=== PATIENT | female | born 1950 | race Two or more races ===

== ENCOUNTER 2017-03-31 06:37 | Inpatient (IN) | payer OTHER ==
[~2017-03-31] VITALS: Ht 160 cm; Wt 108.1 kg
[2017-03-31 07:37] LABS: BASOPHIL % 0.3 % (0-2); PLATELET COUNT 139 x10^3mcL (130-400)
[2017-03-31 07:41] LABS: RED CELL DISTRIBUTION WIDTH 15.8 % (11.5-14.5)
[2017-03-31 07:53] LABS: ALBUMIN 3.7 g/dL (3.4-5.0); BILIRUBIN TOTAL 0.4 mg/dL (0.20-1.00); CALCIUM 9.4 mg/dL (8.5-10.1); CARBON DIOXIDE 32.3 mmol/L (21-32); PHOSPHOROUS 3.9 mg/dL (2.5-4.9); POTASSIUM SERUM 4.4 mmol/L (3.5-5.1); TOTAL PROTEIN, SERUM 7.1 g/dL (6.4-8.2)
[2017-03-31 07:55] LABS: CREATININE SERUM 6.4 mg/dL (0.6-1.0)
[2017-03-31] MEDS ORDERED: HYDRALAZINE HCL25 MG PO (08:53)
[2017-03-31] MEDS ORDERED: RENVELA800 M1 PO (08:53)
[2017-03-31] MEDS ORDERED: NEPHRO-VITE VITA1 EA PO (08:54)
[2017-03-31] MEDS ORDERED: LOSARTAN POTASS50 M1 PO (08:54)
[2017-03-31 11:24] VITALS: BP 178/96
[2017-03-31 11:25] LABS: T3 TOTAL 0.97 ng/mL
[2017-03-31 11:34] LABS: FREE T4 1.21 ng/dL (0.76-1.46); FREE THYROXINE INDEX 3.1 ug/dL (1.4-4.5); T4(THYROXINE) 9.2 ug/dL (4.7-13.3)
[2017-03-31 15:40] VITALS: BP 155/62
[2017-03-31 19:30] VITALS: BP 154/52
[2017-04-01] VITALS: BP 152/74
[2017-04-01 04:05] VITALS: BP 130/65
[2017-04-01 05:40] LABS: BASOPHIL % 0.6 % (0-2); PLATELET COUNT 133 x10^3mcL (130-400); RED CELL DISTRIBUTION WIDTH 15.1 % (11.5-14.5)
[2017-04-01 05:41] LABS: CALCIUM 9.2 mg/dL (8.5-10.1); CARBON DIOXIDE 31.5 mmol/L (21-32); POTASSIUM SERUM 5.2 mmol/L (3.5-5.1)
[2017-04-01 05:43] LABS: CREATININE SERUM 8.2 mg/dL (0.6-1.0)
[2017-04-01 08:11] VITALS: BP 141/64
[2017-04-01 12:00] VITALS: BP 185/65
[2017-04-01 18:04] VITALS: BP 130/55
[2017-04-01 22:04] VITALS: BP 108/37
[2017-04-02 06:13] VITALS: BP 118/44
[2017-04-02 06:21] LABS: MAGNESIUM 1.9 mg/dL (1.8-2.4); PHOSPHOROUS 4.6 mg/dL (2.5-4.9)
[2017-04-02 06:30] LABS: CALCIUM 8.9 mg/dL (8.5-10.1); CARBON DIOXIDE 33.6 mmol/L (21-32); POTASSIUM SERUM 3.9 mmol/L (3.5-5.1)
[2017-04-02 06:35] LABS: CREATININE SERUM 5.7 mg/dL (0.6-1.0)
[2017-04-02 10:16] LABS: IRON 61 ug/dL (50-170)
[2017-04-02 10:24] LABS: RED BLOOD CELLS 3.17 M/mm3 (4.10-5.10); TOTAL IRON BINDING CAPACITY 203 ug/dL (250-450)
[2017-04-02 10:53] VITALS: BP 129/45
[2017-04-02 14:11] VITALS: BP 146/45
[2017-04-02 16:50] VITALS: Ht 160 cm; Wt 108.1 kg
[2017-04-02 20:38] VITALS: BP 98/33
[2017-04-03 05:17] VITALS: BP 148/43
[2017-04-03 06:40] LABS: CALCIUM 8.9 mg/dL (8.5-10.1); CARBON DIOXIDE 33.9 mmol/L (21-32)
[2017-04-03 06:42] LABS: CREATININE SERUM 6.1 mg/dL (0.6-1.0)
[2017-04-03 08:57] VITALS: BP 108/52
[2017-04-03 11:51] VITALS: BP 108/52
== END 2017-04-03 12:17 | disposition home or self-care (01) | DRG 640 ==
LOC: ED 06:37 → IC 09:53 → MU 04-01 11:57 → DU 04-01 12:12
PROVIDERS: Emergency Medicine; Internal Medicine; ADMIT Family Medicine
DX: E87.8 Other disorders of electrolyte and fluid balance, not elsewhere classified (principal); N18.6 End stage renal disease; G93.41 Metabolic encephalopathy; N17.0 Acute kidney failure with tubular necrosis; I50.43 Acute on chronic combined systolic (congestive) and diastolic (congestive) heart failure; Z68.42 Body mass index [BMI] 45.0-49.9, adult; I13.2 Hypertensive heart and chronic kidney disease with heart failure and with stage 5 chronic kidney disease, or end stage renal disease; I16.0 Hypertensive urgency; E11.319 Type 2 diabetes mellitus with unspecified diabetic retinopathy without macular edema; E11.51 Type 2 diabetes mellitus with diabetic peripheral angiopathy without gangrene; D63.1 Anemia in chronic kidney disease; R00.1 Bradycardia, unspecified; E66.01 Morbid (severe) obesity due to excess calories; Z99.2 Dependence on renal dialysis
CPT/HCPCS: 82962; 83880; 84439; 97110-GP; 97116-GP; 97530-GP; A4719; J3490; J7030; J7042; Q0092

== ENCOUNTER 2018-03-20 20:28 | Emergency (ER) | payer OTHER ==
[~2018-03-20] VITALS: Ht 165.1 cm; Wt 111.1 kg
[~2018-03-20 20:28] MED LIST: HYDRALAZINE HCL25 MG PO; LAC PO; LEVAQUIN750 MG PO; LOSARTAN POTASS50 M1 PO; NEPHRO-VITE VITA1 EA PO; RENVELA800 M1 PO; TRAZODONE100 MG PO
[2018-03-20 21:29] LABS: BASOPHIL % 0.4 % (0-2)
[2018-03-20 21:30] LABS: PLATELET COUNT 102 x10^3mcL (130-400); RED CELL DISTRIBUTION WIDTH 15.2 % (11.5-14.5)
[2018-03-20 21:50] LABS: ALBUMIN 3.6 g/dL (3.4-5.0); BILIRUBIN TOTAL 0.48 mg/dL (0.20-1.00); CALCIUM 10.3 mg/dL (8.5-10.1); CARBON DIOXIDE 31.1 mmol/L (21-32); POTASSIUM SERUM 5.4 mmol/L (3.5-5.1); TOTAL PROTEIN, SERUM 6.5 g/dL (6.4-8.2)
[2018-03-20 21:54] LABS: CREATININE SERUM 8.3 mg/dL (0.6-1.0)
[2018-03-20 22:13] VITALS: BP 208/83
== END 2018-03-20 22:42 | disposition home or self-care (01) ==
LOC: ED 20:28
PROVIDERS: Emergency Medicine
DX: E11.22 Type 2 diabetes mellitus with diabetic chronic kidney disease (principal); I12.0 Hypertensive chronic kidney disease with stage 5 chronic kidney disease or end stage renal disease; N18.6 End stage renal disease; E11.43 Type 2 diabetes mellitus with diabetic autonomic (poly)neuropathy; K31.84 Gastroparesis; E78.5 Hyperlipidemia, unspecified
CPT/HCPCS: 83880; J2765; Q0092

== ENCOUNTER 2018-09-08 11:33 | Emergency (ER) | payer OTHER ==
[~2018-09-08] VITALS: Ht 157.5 cm; Wt 89.8 kg
[2018-09-08 11:43] VITALS: Ht 157.5 cm; Wt 89.8 kg
[2018-09-08 12:25] LABS: BASOPHIL % 1.1 % (0-2)
[2018-09-08 12:28] LABS: PLATELET COUNT 103 x10^3mcL (130-400); RED CELL DISTRIBUTION WIDTH 15.5 % (11.5-14.5)
[2018-09-08 12:43] LABS: ALBUMIN 3.4 g/dL (3.4-5.0); BILIRUBIN TOTAL 0.3 mg/dL (0.20-1.00); CALCIUM 9.3 mg/dL (8.5-10.1); CARBON DIOXIDE 30.1 mmol/L (21-32); POTASSIUM SERUM 4.5 mmol/L (3.5-5.1); TOTAL PROTEIN, SERUM 6.6 g/dL (6.4-8.2)
[2018-09-08 12:44] LABS: CHOLESTEROL/HDL RATIO 2.1; CREATININE SERUM 8.3 mg/dL (0.6-1.0)
[2018-09-08 13:04] LABS: FREE T4 0.77 ng/dL (0.76-1.46)
[2018-09-08 13:20] LABS: T3 TOTAL 0.67 ng/mL
[2018-09-08 14:27] VITALS: BP 190/72
== END 2018-09-08 14:27 | disposition home or self-care (01) ==
LOC: ED 11:33
PROVIDERS: Specialist
DX: R00.1 Bradycardia, unspecified (principal); E11.22 Type 2 diabetes mellitus with diabetic chronic kidney disease; E78.00 Pure hypercholesterolemia, unspecified; H54.7 Unspecified visual loss; N18.6 End stage renal disease; Z99.2 Dependence on renal dialysis; Z86.2 Personal history of diseases of the blood and blood-forming organs and certain disorders involving the immune mechanism
CPT/HCPCS: 36415; 83880; 84439; J7030; Q0092

== ENCOUNTER 2019-08-16 14:48 | Emergency (ER) | payer OTHER ==
[~2019-08-16] VITALS: Ht 157.5 cm; Wt 93.4 kg
[2019-08-16 14:51] VITALS: Ht 157.5 cm; Wt 93.4 kg
[2019-08-16 16:00] LABS: RED CELL DISTRIBUTION WIDTH 14.4 % (11.5-14.5)
[2019-08-16 16:01] LABS: BASOPHIL % 0 % (0-2); BILIRUBIN TOTAL 0.5 mg/dL (0.20-1.00); CALCIUM 8.4 mg/dL (8.5-10.1); CARBON DIOXIDE 35.8 mmol/L (21-32); PLATELET COUNT 114 x10^3mcL (130-400); POTASSIUM SERUM 4.3 mmol/L (3.5-5.1)
[2019-08-16 16:04] LABS: ALBUMIN 2.8 g/dL (3.4-5.0); TOTAL PROTEIN, SERUM 6.1 g/dL (6.4-8.2)
[2019-08-16 16:05] LABS: CREATININE SERUM 5.6 mg/dL (0.6-1.0)
[2019-08-16 17:05] VITALS: BP 171/60
== END 2019-08-16 17:05 | disposition home or self-care (01) ==
LOC: ED 14:48
PROVIDERS: Emergency Medicine
DX: R11.10 Vomiting, unspecified (principal); E11.22 Type 2 diabetes mellitus with diabetic chronic kidney disease; N18.6 End stage renal disease
CPT/HCPCS: 36415; J2405; Q0162

== ENCOUNTER 2019-09-30 11:38 | Inpatient (IN) | payer OTHER, MEDICAID ==
[~2019-09-30] VITALS: Ht 157.5 cm; Wt 95.0 kg
[2019-09-30 11:45] VITALS: Ht 157.5 cm; Wt 95.0 kg
[2019-09-30 12:49] LABS: BASOPHIL % 0.1 % (0-2)
[2019-09-30 12:51] LABS: CALCIUM 8.9 mg/dL (8.5-10.1); CARBON DIOXIDE 33.8 mmol/L (21-32); CREATININE SERUM 3.3 mg/dL (0.6-1.0); POTASSIUM SERUM 3.6 mmol/L (3.5-5.1)
[2019-09-30 12:52] LABS: PLATELET COUNT 92 x10^3mcL (130-400); RED CELL DISTRIBUTION WIDTH 16.7 % (11.5-14.5)
[2019-09-30 12:56] LABS: BILIRUBIN TOTAL 0.6 mg/dL (0.20-1.00); TOTAL PROTEIN, SERUM 6.3 g/dL (6.4-8.2)
[2019-09-30 13:04] LABS: ALBUMIN 2.8 g/dL (3.4-5.0)
[2019-09-30 13:06] LABS: microscopic required? YES; urine erythrocyte 2+ (NEGATIVE)
[2019-09-30] MEDS ORDERED: [UNRECOGNIZED DRUG - OTHER] PO (14:42)
[2019-09-30 15:39] VITALS: BP 150/56
[2019-09-30 16:28] LABS: MAGNESIUM 1.9 mg/dL (1.8-2.4); PHOSPHOROUS 1.7 mg/dL (2.5-4.9)
[2019-09-30 16:29] LABS: CHOLESTEROL/HDL RATIO 2.2; FREE T4 1.39 ng/dL (0.76-1.46); T4(THYROXINE) 8.1 ug/dL (4.7-13.3)
[2019-09-30 16:30] LABS: T3 TOTAL 0.57 ng/mL
[2019-09-30 20:53] VITALS: BP 157/43
[2019-10-01 05:57] VITALS: BP 168/46
[2019-10-01 07:01] LABS: BASOPHIL % 0.1 % (0-2)
[2019-10-01 07:13] LABS: CALCIUM 8.8 mg/dL (8.5-10.1); CARBON DIOXIDE 30.2 mmol/L (21-32); MAGNESIUM 1.9 mg/dL (1.8-2.4); PHOSPHOROUS 2.8 mg/dL (2.5-4.9)
[2019-10-01 07:25] LABS: CREATININE SERUM 4.6 mg/dL (0.6-1.0)
[2019-10-01 07:37] LABS: PLATELET COUNT 83 x10^3mcL (130-400); RED CELL DISTRIBUTION WIDTH 17.2 % (11.5-14.5)
[2019-10-01 09:40] VITALS: BP 154/40
[2019-10-01 13:32] VITALS: BP 140/54
[2019-10-01 17:09] VITALS: BP 133/53
[2019-10-01 20:49] VITALS: BP 155/41
[2019-10-02 06:02] VITALS: BP 151/34
[2019-10-02 07:37] LABS: CALCIUM 8.8 mg/dL (8.5-10.1); CARBON DIOXIDE 30.8 mmol/L (21-32); MAGNESIUM 2.1 mg/dL (1.8-2.4); PHOSPHOROUS 3.3 mg/dL (2.5-4.9)
[2019-10-02 07:39] LABS: CREATININE SERUM 6.2 mg/dL (0.6-1.0)
[2019-10-02 07:51] LABS: BASOPHIL % 0.1 % (0-2)
[2019-10-02 08:30] LABS: PLATELET COUNT 82 x10^3mcL (130-400); RED CELL DISTRIBUTION WIDTH 17.3 % (11.5-14.5)
[2019-10-02 09:12] VITALS: BP 167/46
[2019-10-02 12:20] VITALS: BP 141/32
[2019-10-02 17:15] VITALS: BP 141/40
[2019-10-02 21:59] VITALS: BP 120/27
[2019-10-03 05:24] VITALS: BP 165/41
[2019-10-03 06:59] LABS: BASOPHIL % 0.4 % (0-2)
[2019-10-03 07:06] LABS: CALCIUM 8.5 mg/dL (8.5-10.1); CARBON DIOXIDE 30.6 mmol/L (21-32); POTASSIUM SERUM 3.8 mmol/L (3.5-5.1)
[2019-10-03 07:14] LABS: CREATININE SERUM 4.2 mg/dL (0.6-1.0)
[2019-10-03 07:39] VITALS: BP 155/38
[2019-10-03 09:12] LABS: PLATELET COUNT 90 x10^3mcL (130-400); RED CELL DISTRIBUTION WIDTH 17.6 % (11.5-14.5)
[2019-10-03 12:46] VITALS: BP 135/34
[2019-10-03 15:50] VITALS: BP 131/34
[2019-10-03 20:50] VITALS: BP 169/73
[2019-10-04 05:47] VITALS: BP 190/55
[2019-10-04 06:40] LABS: BASOPHIL % 0.3 % (0-2)
[2019-10-04 07:08] LABS: CALCIUM 9.2 mg/dL (8.5-10.1); PHOSPHOROUS 3.6 mg/dL (2.5-4.9); POTASSIUM SERUM 3.7 mmol/L (3.5-5.1)
[2019-10-04 07:19] LABS: CREATININE SERUM 5.7 mg/dL (0.6-1.0)
[2019-10-04 07:29] LABS: PLATELET COUNT 88 x10^3mcL (130-400)
[2019-10-04 09:31] VITALS: BP 175/47
[2019-10-04 12:46] VITALS: BP 120/36
[2019-10-04 16:20] VITALS: BP 117/40
[2019-10-04 20:33] VITALS: BP 133/27
[2019-10-04 21:34] VITALS: BP 133/40
[2019-10-05 04:25] VITALS: BP 137/33
[2019-10-05 05:22] VITALS: BP 154/33
[2019-10-05 06:31] LABS: BASOPHIL % 0.6 % (0-2)
[2019-10-05 06:45] LABS: PLATELET COUNT 83 x10^3mcL (130-400); RED CELL DISTRIBUTION WIDTH 17.1 % (11.5-14.5)
[2019-10-05 07:04] LABS: CALCIUM 8.9 mg/dL (8.5-10.1); CARBON DIOXIDE 32.3 mmol/L (21-32); CREATININE SERUM 4.3 mg/dL (0.6-1.0); POTASSIUM SERUM 3.7 mmol/L (3.5-5.1)
[2019-10-05 12:30] VITALS: BP 147/35
[2019-10-05 15:10] VITALS: BP 137/34
[2019-10-05 20:04] VITALS: BP 149/34
[2019-10-06 04:30] VITALS: BP 120/37
[2019-10-06 07:37] LABS: BASOPHIL % 0.5 % (0-2)
[2019-10-06 08:02] LABS: POTASSIUM SERUM 3.7 mmol/L (3.5-5.1)
[2019-10-06 08:03] LABS: CALCIUM 9.1 mg/dL (8.5-10.1); CREATININE SERUM 5.9 mg/dL (0.6-1.0); MAGNESIUM 1.9 mg/dL (1.8-2.4); PHOSPHOROUS 3.8 mg/dL (2.5-4.9)
[2019-10-06 08:06] LABS: PLATELET COUNT 96 x10^3mcL (130-400); RED CELL DISTRIBUTION WIDTH 17.5 % (11.5-14.5)
[2019-10-06 09:00] VITALS: BP 144/35
[2019-10-06 12:30] VITALS: BP 160/37
[2019-10-06 17:41] VITALS: BP 156/38
[2019-10-06 20:30] VITALS: BP 160/39
[2019-10-07 04:16] VITALS: BP 146/38
[2019-10-07 06:29] LABS: BASOPHIL % 0.6 % (0-2)
[2019-10-07 06:37] LABS: PLATELET COUNT 99 x10^3mcL (130-400); RED CELL DISTRIBUTION WIDTH 17.6 % (11.5-14.5)
[2019-10-07 07:07] LABS: CARBON DIOXIDE 30.9 mmol/L (21-32); POTASSIUM SERUM 4.1 mmol/L (3.5-5.1)
[2019-10-07 07:08] LABS: CALCIUM 8.9 mg/dL (8.5-10.1)
[2019-10-07 09:10] VITALS: BP 143/40
[2019-10-07 12:36] VITALS: BP 134/34
[2019-10-07 17:52] VITALS: BP 171/45
[2019-10-07 18:44] VITALS: BP 150/44
[2019-10-07 20:21] VITALS: BP 164/36
[2019-10-08 04:46] VITALS: BP 157/40
[2019-10-08 07:22] LABS: BASOPHIL % 0.4 % (0-2)
[2019-10-08 08:05] LABS: PLATELET COUNT 103 x10^3mcL (130-400); RED CELL DISTRIBUTION WIDTH 17.5 % (11.5-14.5)
[2019-10-08 08:18] VITALS: BP 141/34
[2019-10-08 08:26] LABS: CARBON DIOXIDE 27.9 mmol/L (21-32); POTASSIUM SERUM 4.3 mmol/L (3.5-5.1)
[2019-10-08 08:27] LABS: CALCIUM 8.9 mg/dL (8.5-10.1); CREATININE SERUM 8.4 mg/dL (0.6-1.0)
[2019-10-08 15:35] VITALS: BP 177/50
[2019-10-08 17:10] VITALS: BP 151/42
[2019-10-08 21:10] VITALS: BP 116/38
[2019-10-09 04:48] VITALS: BP 152/55
[2019-10-09 07:37] LABS: RED CELL DISTRIBUTION WIDTH 17.4 % (11.5-14.5)
[2019-10-09 07:38] LABS: PLATELET COUNT 105 x10^3mcL (130-400)
[2019-10-09 07:48] LABS: CARBON DIOXIDE 25.3 mmol/L (21-32); POTASSIUM SERUM 4.2 mmol/L (3.5-5.1)
[2019-10-09 07:50] LABS: CALCIUM 8.9 mg/dL (8.5-10.1)
[2019-10-09 08:39] LABS: BASOPHIL 1 % (0-2); MONOCYTE 5 % (0-7); SEGMENTED NEUTROPHILS 81 % (37-75)
[2019-10-09 08:40] LABS: PLATELET MORPHOLOGY PLATELETS DECREASED
[2019-10-09 08:59] LABS: rbc morphology (normal/abnorm) NORMAL (NORMAL)
[2019-10-09 09:28] VITALS: BP 151/35
[2019-10-09 12:08] VITALS: BP 146/22
[2019-10-09 17:15] VITALS: BP 154/28
[2019-10-09 21:13] VITALS: BP 153/39
[2019-10-10 06:04] VITALS: BP 135/51
[2019-10-10 08:27] LABS: BASOPHIL % 0.5 % (0-2)
[2019-10-10 08:29] VITALS: BP 194/46
[2019-10-10 08:38] LABS: PLATELET COUNT 93 x10^3mcL (130-400); RED CELL DISTRIBUTION WIDTH 17.6 % (11.5-14.5)
[2019-10-10 09:38] LABS: CARBON DIOXIDE 21.4 mmol/L (21-32)
[2019-10-10 09:39] LABS: CALCIUM 8.9 mg/dL (8.5-10.1); CREATININE SERUM 8.3 mg/dL (0.6-1.0)
[2019-10-10 12:11] VITALS: BP 139/31
[2019-10-10 16:13] VITALS: BP 133/44
[2019-10-10 21:33] VITALS: BP 161/37
[2019-10-11 06:00] VITALS: BP 174/44
[2019-10-11 06:43] LABS: BASOPHIL % 0.3 % (0-2)
[2019-10-11 06:58] LABS: PLATELET COUNT 85 x10^3mcL (130-400); RED CELL DISTRIBUTION WIDTH 17.8 % (11.5-14.5)
[2019-10-11 07:16] LABS: CARBON DIOXIDE 26.5 mmol/L (21-32); POTASSIUM SERUM 3.7 mmol/L (3.5-5.1)
[2019-10-11 07:17] LABS: CALCIUM 8.9 mg/dL (8.5-10.1); CREATININE SERUM 6.6 mg/dL (0.6-1.0)
[2019-10-11 08:45] VITALS: BP 143/34
[2019-10-11 13:04] VITALS: BP 157/37
[2019-10-11 17:27] VITALS: BP 152/44
[2019-10-11 20:50] VITALS: BP 131/32
[2019-10-12 06:05] VITALS: BP 152/40
[2019-10-12 07:07] LABS: BASOPHIL % 0.3 % (0-2)
[2019-10-12 07:48] LABS: PLATELET COUNT 76 x10^3mcL (130-400); RED CELL DISTRIBUTION WIDTH 17.1 % (11.5-14.5)
[2019-10-12 07:49] LABS: CARBON DIOXIDE 25.7 mmol/L (21-32); POTASSIUM SERUM 3.8 mmol/L (3.5-5.1)
[2019-10-12 07:52] LABS: CALCIUM 8.9 mg/dL (8.5-10.1); CREATININE SERUM 7.8 mg/dL (0.6-1.0)
[2019-10-12 08:17] VITALS: BP 175/49
[2019-10-12 12:09] VITALS: BP 102/41
[2019-10-12 17:27] VITALS: BP 130/32
[2019-10-12 20:50] VITALS: BP 136/35
[2019-10-13 05:59] VITALS: BP 119/50
[2019-10-13 06:16] LABS: BASOPHIL % 0.6 % (0-2)
[2019-10-13 06:25] LABS: PLATELET COUNT 81 x10^3mcL (130-400); RED CELL DISTRIBUTION WIDTH 17.9 % (11.5-14.5)
[2019-10-13 07:43] LABS: POTASSIUM SERUM 3.9 mmol/L (3.5-5.1)
[2019-10-13 07:44] LABS: CARBON DIOXIDE 23.5 mmol/L (21-32)
[2019-10-13 07:46] LABS: CREATININE SERUM 7.3 mg/dL (0.6-1.0)
[2019-10-13 08:50] VITALS: BP 143/38
[2019-10-13] MEDS ORDERED: APR25 PO (10:29)
[2019-10-13] MEDS ORDERED: REN800 PO (10:33)
[2019-10-13] MEDS ORDERED: NAFCILLIN2 G/100 ML IV (10:36)
[2019-10-13 12:10] VITALS: BP 150/37
[2019-10-13 17:04] VITALS: BP 152/33
[2019-10-13 19:21] VITALS: BP 137/45
[2019-10-14 03:45] VITALS: BP 143/37
[2019-10-14 08:24] VITALS: BP 152/39
[2019-10-14 08:40] LABS: PLATELET COUNT 81 x10^3mcL (130-400); RED CELL DISTRIBUTION WIDTH 17.3 % (11.5-14.5)
[2019-10-14 08:45] LABS: CALCIUM 9.3 mg/dL (8.5-10.1); CARBON DIOXIDE 23.5 mmol/L (21-32); POTASSIUM SERUM 3.9 mmol/L (3.5-5.1)
[2019-10-14 08:49] LABS: CREATININE SERUM 8.1 mg/dL (0.6-1.0)
[2019-10-14 11:17] VITALS: BP 156/49
[2019-10-14 11:39] VITALS: BP 152/39
== END 2019-10-14 13:55 | DRG 871 ==
LOC: ED 11:38 → DU 14:23 → MU 14:23 → DU 15:17 → MU 10-06 03:55
PROVIDERS: Emergency Medicine; Internal Medicine; Student in an Organized Health Care Education/Training Program; Surgery; ADMIT Family Medicine
PROC: 05PY33Z Removal of Infusion Device from Upper Vein, Percutaneous Approach (ICD-10-PCS; 2019-10-05)
PROC: B54CZZA Ultrasonography of Left Lower Extremity Veins, Guidance (ICD-10-PCS; 2019-10-08)
PROC: 06HN33Z Insertion of Infusion Device into Left Femoral Vein, Percutaneous Approach (ICD-10-PCS; principal; 2019-10-08 15:00)
DX: A41.1 Sepsis due to other specified staphylococcus (principal); N18.6 End stage renal disease; I33.0 Acute and subacute infective endocarditis; N39.0 Urinary tract infection, site not specified; E87.1 Hypo-osmolality and hyponatremia; I12.0 Hypertensive chronic kidney disease with stage 5 chronic kidney disease or end stage renal disease; E78.5 Hyperlipidemia, unspecified; D63.8 Anemia in other chronic diseases classified elsewhere; H54.8 Legal blindness, as defined in USA; E66.01 Morbid (severe) obesity due to excess calories; Z99.2 Dependence on renal dialysis; Z68.36 Body mass index [BMI] 36.0-36.9, adult
CPT/HCPCS: 82962; 83880; 84439; 87804; 90658; 97110-GP; 97116-GP; 97530-GP; C1751; G0378; J0696; J1170; J1644; J2001; J2543; J2704; J3010; J3370; J3490; J7030; J7040; J7050; J7060; Q0092